=== PATIENT | female | born 1970 | race Caucasian/White ===

== ENCOUNTER → 2016-06-10 | Outpatient (CLI) | payer MEDICARE, MEDICAID ==
--- NOTE | 2016-06-10 10:49 | REP ---
Cervical spine age views: There are no comparisons. Vertebral body heights, interspacing alignment are normal. There is no listhesis on flexion or extension. The facets are normally aligned. Prevertebral soft tissues are normal. The odontoid view is unremarkable. There is no bony foraminal encroachment. Impression: Essentially negative cervical spine. Signed by John Dunham MD 06/10/2016 10:40 A
--- NOTE | 2016-06-10 10:51 | REP ---
Lumbar spine seven views including lateral views with flexion and extension. Vertebral body heights, interspacing alignment are normal. There is no spondylolysis or spondylolisthesis. There is no listhesis on the lateral views with flexion or extension. The pedicles, facets and sacroiliac articulations are unremarkable. An IUD is incidentally noted in the midline of the pelvis. Impression: Essentially negative lumbar spine. Signed by John Dunham MD 06/10/2016 10:42 A
--- NOTE | 2016-06-12 06:01 | REP ---
MRI BRAIN WITHOUT CONTRAST: HISTORY: Headaches. A single punctate focus of increased signal intensity on T2-weighted images is present in the periventricular white matter of the right frontal lobe. There is no intraparenchymal hemorrhage, infarct, mass or midline shift. The ventricular system is normal in appearance. There is no extracerebral collection. The sinuses are clear. IMPRESSION: There is a single punctate focus of increased signal intensity in the periventricular white matter of the right frontal lobe. This is a nonspecific finding. Signed by Melvin Holder MD 06/12/2016 08:08 A
== END ==
LOC: M RAD 09:25
PROVIDERS: ATTEND Neurological Surgery
DX: R51 Headache (principal); M47.892 Other spondylosis, cervical region; M47.896 Other spondylosis, lumbar region

== ENCOUNTER → 2020-09-14 | Outpatient (CLI) | payer MEDICARE ==
--- NOTE | 2020-09-16 01:00 | ECWPNPC ---
PATIENT NAME: GLORIA BUNCH : 1970 GENDER: FEMALE VISIT DATE: 09/14/2020 DISCHARGE DATE: 09/14/20 1359 VISIT LOCKED DATE TIME: PHYSICIAN: BALDO BERRIOS RESOURCE: BALDO BERRIOS REASON FOR APPOINTMENT 1. CHRONIC LOW BACK PAIN HISTORY OF PRESENT ILLNESS DEPRESSION SCREENING: PHQ-9 LITTLE INTEREST OR PLEASURE IN DOING THINGSMORE THAN HALF THE DAYS FEELING DOWN, DEPRESSED, OR HOPELESSMORE THAN HALF THE DAYS TROUBLE FALLING OR STAYING ASLEEP, OR SLEEPING TOO MUCHSEVERAL DAYS FEELING TIRED OR HAVING LITTLE ENERGYSEVERAL DAYS POOR APPETITE OR OVEREATING NEARLY EVERY DAY FEELING BAD ABOUT YOURSELF-OR THAT YOU ARE A FAILURE OR HAVE LET YOURSELF OR YOUR FAMILY DOWN MORE THAN HALF THE DAYS TROUBLE CONCENTRATING ON THINGS, SUCH READING THE NEWSPAPER OR WATCHING TELEVISION NEARLY EVERY DAY MOVING OR SPEAKING SO SLOWLY THAT OTHER PEOPLE COULD HAVE NOTICED. OR THE OPPOSITE- BEING SO FIDGETY OR RESTLESS THAT YOU HAVE BEEN MOVING AROUND A LOT MORE THAN USUALMORE THAN HALF THE DAYS THOUGHTS THAT YOU WOULD BE BETTER OFF , OR OF HURTING YOURSELF IN SOME WAY?NOT AT ALL TOTAL SCORE:16 INTERPRETATIONMODERATELY SEVERE DEPRESSION PHQ-2 (2015 EDITION) LITTLE INTEREST OR PLEASURE IN DOING THINGS?MORE THAN HALF THE DAYS FEELING DOWN, DEPRESSED, OR HOPELESS?MORE THAN HALF THE DAYS TOTAL SCORE4 GENERAL: PLEASANT 50-YEAR-OLD FEMALE REFERRED BY DR. ADAMS, [facility], FOR CHRONIC LOW BACK PAIN. PATIENT REPORTS THAT IN 2005 SHE FELL OFF OF LADDER AND LANDED ON HER BACK . HAS HAD CHRONIC BACK PAIN SINCE THAT POINT THAT HAS PROGRESSED OVER THE YEARS. WORST AREA OF PAIN AND REALLY THE ONLY LOCATION OF PAIN IS HER LEFT THORACIC AND LOW BACK REGION. REPORTS NUMBNESS AND BURNING IN HER LEFT LEG IN ITS ENTIRETY. SHE ALSO REPORTS LEFT NECK AND ARM COMPLAINTS. CURRENTLY ON GABAPENTIN AND TRAMADOL PRESCRIBED BY PRIMARY CARE. DESCRIBES BURNING PAIN IN HER LOW BACK AREA. PAIN IS AGGRAVATED WITH RANGE OF JOINT MOTION OF THE SPINE. RECENT TRIAL OF PT WAS UNSUCCESSFUL DUE TO THE PATIENT NOT BEING ABLE TO TOLERATE LAYING DOWN DUE TO LEFT MID TO LOW BACK PAIN AND BURNING. REVIEWED MRI OF THE LS SPINE AND RECENT NERVE CONDUCTION STUDIES. DISCUSSED TREATMENT PLAN. - - -. FALL RISK SCREENING: SCREENING : NO FALLS REPORTED IN THE LAST YEAR . PAIN SCREENING: PATIENT HAS A COMPLAINT OF ACUTE OR CHRONIC PAIN :YES LOCATION OF PAIN:MID BACK, LOW BACK INTENSITY OF PAIN (SCALE OF 1 TO 10):10 WHAT DOES YOUR PAIN FEEL LIKE:BURNING, CONTINOUS, SHOOTING DURATION:CONTINOUS, CONSTANT, ALL DAY PAIN IS INCREASED BY:ACTIVITIES, OTHERS BENDING OVER PAIN IS DECREASED BY:USE OF PAIN MEDICATIONS GABAPENTIN NURSING NOTE: - - -. PAIN CENTER INTAKE QUESTIONS: DO YOU HAVE A HISTORY OF MRSA? :NO DO YOU TAKE A BLOOD THINNERS? :NO DO YOU HAVE ANY BLEEDING DISORDERS? :NO ANY NEW NUMBNESS OR WEAKNESS IN YOUR LEGS OR ARMS? :YES PINCH NERVE IN THE LEFT IN TOES ANY PACEMAKER,DEFIBRILLATOR, OR DORSAL COLUMN STIMULATOR? :YES DEFIBRILLATOR DO YOU HAVE ANY RASHES OR OPEN SORES? :NO ARE YOU ALLERGIC TO IV DYE? :NO ARE YOU DIABETIC? :NO ANY NEW PROBLEMS WITH YOUR MEDICATIONS? :NO HAVE YOU RECEIVED A VACCINE IN THE PAST 30 DAYS? :NO DO YOU PLAN TO RECEIVE A VACCINE IN THE NEXT 21 DAYS? :NO DO YOU NEED ANY PRESCRIPTION? :NO DO YOU TAKE ANY IMMUNOSUPPRESSIVE MEDICATIONS? :NO IS THERE A CHANCE YOU COULD BE ? :NO ARE YOU BREAST FEEDING? :NO CURRENT MEDICATIONS TAKING BACLOFEN 20 MG TABLET 1 TABLET ADMINISTER WITHOUT REGARDS TO MEALS NEEDED ORALLY TWICE A DAY TAKING NAPROXEN 500 MG TABLET 1 TABLET WITH FOOD OR MILK NEEDED ORALLY EVERY 12 HRS TAKING GABAPENTIN 600 MG TABLET 1 TABLET ORALLY ONCE A DAY TAKING TRAMADOL HCL 50 MG TABLET 1 TABLET NEEDED ORALLY ONCE A DAY TAKING OMEPRAZOLE 10 MG CAPSULE DELAYED RELEASE 1 CAPSULE 30 MINUTES BEFORE MORNING MEAL ORALLY ONCE A DAY TAKING CALCIUM 1 TAB ORAL TAKING IRON SUPPLEMENT 220 (44 FE) MG/5ML ELIXIR DIRECTED ORALLY TAKING LEVOTHYROXINE SODIUM 25 MCG TABLET 1 TABLET IN THE MORNING ON AN EMPTY STOMACH ORALLY ONCE A DAY NOT-TAKING PERCOCET 7.5-325 MG TABLET 1 TABLET NEEDED ORALLY EVERY 6 HRS NOT-TAKING TYLENOL 8 HOUR 650 MG TABLET EXTENDED RELEASE 2 TABLETS NEEDED ORALLY EVERY 8 HRS NOT-TAKING LEVOTHYROXINE SODIUM 25 MCG TABLET 1 TABLET IN THE MORNING ON AN EMPTY STOMACH ORALLY ONCE A DAY, NOTES: NOT SURE OF DOSE NOT-TAKING TYLENOL 325 MG TABLET 1 TABLET NEEDED ORALLY EVERY 4 HRS MEDICATION LIST REVIEWED AND RECONCILED WITH THE PATIENT PAST MEDICAL HISTORY HAND PAIN CARPAL TUNNEL SYNDROME BILATERAL SHOULDERS PAIN CERVICAL RADIOCULPATHY VISUAL AURAS BACK PAIN MODERNA 1ST: 05/20/2020 2ND: 06/17/2020 ALLERGIES SEASONAL IC: SNEEZING - ALLERGY SURGICAL HISTORY BILATERAL FOOT SRUG 2019 BILATERAL KNEE SURG 2018 BILATERAL ELBOWS SURG 2006 CHILD 2X TUBAL LIGATION 1994 APPENDECTOMY FAMILY HISTORY FATHER: 47 YRS MOTHER: ALIVE SIBLINGS: ALIVE SON(S): 3 BROTHER(S) , 1 SISTER(S) . 2DAUGHTER(S) - HEALTHY. ONE DAUGHTERS - FROM [place]- AT THE 25 YEARS OLD. SOCIAL HISTORY GENERAL: TOBACCO USE ARE YOU A:NONSMOKER NEVER SMOKER LATEX QUESTIONNAIRE LATEX ALLERGY : HAVE YOU EVER DEVELOPED ANY TYPE OF REACTION AFTER HANDLING LATEX PRODUCTS SUCH RUBBER GLOVES, CONDOMS, DIAPHRAGMS, BALLOONS, SOCKS, OR UNDERWEAR?NO LATEX ALLERGY : HAVE YOU EVER DEVELOPED ANY TYPE OF REACTION DURING OR AFTER DENTAL APPOINTMENT, VAGINAL/RECTAL EXAMINATION, SURGICAL PROCEDURE, OR ANY OTHER EXPOSURE?NO LATEX RISK : HAVE YOU EVER HAD ANY DIFFICULTY BREATHING OR HIVES AFTER EATING OR HANDLING ANY FRUITS, OR VEGETABLES; SUCH KIWI, BANANAS, STONE FRUITS, OR CHESTNUTSNO LATEX RISK : DO YOU HAVE A PREVIOUS PERSONAL HISTORY OF MORE THAN NINE SURGERIES, SPINA BIFIDA, OR REPEATED CATHERIZATIONS? NO LATEX RISK : ARE YOU FREQUENTLY EXPOSED TO LATEX PRODUCTS IN YOUR OCCUPATION?NO DATE ASKED : 09/14/2020 ALCOHOL USE: NO. RECREATIONAL DRUG USE DRUG USE?NO LANGUAGE LANGUAGES SPOKEN:LITHUANIAN LEARNING BARRIERS / SPECIAL NEEDS CHANGE FROM LAST VISIT?NO BARRIERS TO LEARNING?NO HEARING IMPAIRED?YES VISION IMPAIRED?YES :CORRECTIVE LENSES COGNITIVELY IMPAIRED?YES READINESS TO LEARN?NO LEARNING PREFERENCES?NO LEARNING CAPABILITIES PRESENT?YES EMOTIONAL BARRIERS?NO SPECIAL DEVICES?NO HOSPITALIZATION/MAJOR DIAGNOSTIC PROCEDURE NO HOSPITALIZATION HISTORY. REVIEW OF SYSTEMS CONSTITUTIONAL: ANY RECENT FEVER NO . CHILLS NO . WEIGHT CHANGE OF UNKNOWN REASONS NO . GASTROENTEROLOGY: NEW UNEXPLAINABLE CHANGES IN BOWEL CONTROL NO . CONSTIPATION NO . GENITOURINARY: ANY NEW CHANGE IN BLADDER CONTROL? NO . NEUROLOGY: NEW ONSET DIZZINESS OR NEUROLOGICAL CHANGES NOT MENTIONED NO . NEW NUMBNESS OR PAIN PATTERNS NOT MENTIONED AND PERTINENT TO TODAY'S VISIT NO . CARDIOLOGY: NEW CHEST PRESSURE NO . PATIENT DENIES NO . RESPIRATORY: UNEXPLAINABLE COUGH NO . NEW SHORTNESS OF BREATH NO . VITAL SIGNS WT 264 LBS, HT 6'0, BMI 35.80 INDEX, BP 156/74 MM HG, RR 18 /MIN, TEMP 97.7 F, OXYGEN SAT % 97%, SAFE IN ENV? (Y/N) YEST.BRENDA HOLCOMB. EXAMINATION GENERAL EXAMINATION: GENERALNO ACUTE DISTRESS, WELL NOURISHED AND HYDRATED. PSYCHAPPROPRIATE MOOD AND AFFECT . FACE:UNREMARKABLE. NECK:NO LYMPHADENOPATHY, SUPPLE. LUNGS:CLEAR TO AUSCULTATION BILATERALLY, NO WHEEZES, RHONCHI, RALES. HEART:NO MURMURS, REGULAR RATE AND RHYTHM. MUSCULOSKELETAL: TRIGGER POINTS: NOTED OVER LEFT THORACIC AND LEFT LUMBAR. PAIN IS AGGRAVATED IN THIS REGION WITH RANGE OF JOINT MOTION OF THE SPINE.. LUMBAR: TRIGGER POINTS: NOTED OVER LEFT UPPER LUMBAR PARASPINAL REGION. PAIN IS AGGRAVATED IN THIS AREA WITH RANGE OF JOINT MOTION OF THE SPINE.. NEUROLOGIC EXAM:PARESTHESIAS TO LIGHT TOUCH NOTED OVER LEFT LEG. MILD WEAKNESS NOTED OVER LEFT LEG.. DIAGNOSTIC TESTS REVIEWED MRI L/S SPINE-2019. NCS UPPER/LOWER EXTREMITIES. ASSESSMENTS MYALGIA, OTHER SITE - M79.18 (PRIMARY) TREATMENT MYALGIA, OTHER SITE MEDICATION: PAIN VALIUM TAB 5MG ORALLY (DIAZEPAM) (ORDERED FOR 09/28/2020) MEDICATION: PAIN OXYCODONE HCL TAB 5MG ORALLY (ORDERED FOR 09/28/2020) NOTES: TRIGGER POINT INJECTIONS LEFT THORACIC,LEFT LOW BACK PRINTED AND REVIEWED PRE PROCEDURE INFORMATION, PATIENT VERBALIZED UNDERSTANDING CHENG HOLCOMB. PROCEDURE CODES [id number] ESTABILISHED PATIENT [facility] CHARGE DISPOSITION & COMMUNICATION FOLLOW UP POST (REASON: TRIGGER POINT INJECTIONS LEFT THORACIC,LEFT LOW BACK) ELECTRONICALLY SIGNED BY DC VALENTE ON 09/15/2020 AT 01:01 PM EDT DISCLAIMER : THIS IS A VISIT SUMMARY EXTRACTED FROM THE [email or web address] CHART. IT IS NOT A COPY OF THE [email or web address] PROGRESS NOTE. MTDD
== END ==
LOC: M PAIN 13:00
PROVIDERS: ATTEND Nurse Practitioner Family
DX: M79.18 Myalgia, other site (principal); M54.12 Radiculopathy, cervical region; M25.511 Pain in right shoulder; M25.512 Pain in left shoulder; Z79.891 Long term (current) use of opiate analgesic; Z79.899 Other long term (current) drug therapy; J30.2 Other seasonal allergic rhinitis

== ENCOUNTER → 2020-10-27 | Outpatient (CLI) | payer MEDICARE | LOC: M LABSMTC 10:03 | PROVIDERS: ATTEND Anesthesiology | DX: Z01.818 Encounter for other preprocedural examination (principal); Z20.822 Contact with and (suspected) exposure to COVID-19 ==

== ENCOUNTER → 2020-11-01 | Outpatient (CLI) | payer MEDICARE ==
[~2020-11-01] MED LIST: BUPIVACAINE HCL 0.25% 10ML VIAL As Ordered ONE; BUPIVACAINE HCL 0.25% 30ML VIAL As Ordered ONE; TRIAMCINOLONE ACETONIDE SUSP 40 MG/ML VIAL (J3301) As Ordered ONE; diazePAM 5MG TABLET As Ordered ONE; oxyCODONE 5MG TAB As Ordered ONE
== END ==
LOC: M PAIN 08:30
PROVIDERS: ATTEND Anesthesiology
DX: M79.18 Myalgia, other site (principal); M54.12 Radiculopathy, cervical region; J30.2 Other seasonal allergic rhinitis; Z79.891 Long term (current) use of opiate analgesic; Z79.899 Other long term (current) drug therapy
CPT/HCPCS: 20552; J3301

== ENCOUNTER → 2021-01-06 | Outpatient (CLI) | payer MEDICARE | LOC: M PAIN 09:30 | PROVIDERS: ATTEND Anesthesiology | DX: G89.29 Other chronic pain (principal); M79.18 Myalgia, other site; Z79.1 Long term (current) use of non-steroidal anti-inflammatories (NSAID); Z79.899 Other long term (current) drug therapy ==

== ENCOUNTER → 2021-02-02 | Outpatient (CLI) | payer MEDICARE | LOC: M PAIN 11:30 | PROVIDERS: ATTEND Anesthesiology | DX: M54.12 Radiculopathy, cervical region (principal); J30.9 Allergic rhinitis, unspecified; Z79.899 Other long term (current) drug therapy ==

== ENCOUNTER → 2021-05-04 | Outpatient (CLI) | payer MEDICARE | LOC: M PAIN 11:15 | PROVIDERS: ATTEND Anesthesiology | DX: M54.12 Radiculopathy, cervical region (principal); G89.29 Other chronic pain; M54.6 Pain in thoracic spine; G62.9 Polyneuropathy, unspecified; E66.01 Morbid (severe) obesity due to excess calories; Z68.43 Body mass index [BMI] 50.0-59.9, adult; Z79.899 Other long term (current) drug therapy ==

== ENCOUNTER → 2021-08-17 | Outpatient (CLI) | payer MEDICARE | LOC: M PAIN 10:00 | PROVIDERS: ATTEND Anesthesiology | DX: M54.12 Radiculopathy, cervical region (principal); G62.9 Polyneuropathy, unspecified; M54.6 Pain in thoracic spine; G89.29 Other chronic pain; E66.01 Morbid (severe) obesity due to excess calories; Z68.43 Body mass index [BMI] 50.0-59.9, adult; Z79.899 Other long term (current) drug therapy ==

== ENCOUNTER → 2021-12-22 | Outpatient (CLI) | payer MEDICARE | LOC: M PAIN 11:15 | PROVIDERS: ATTEND Nurse Practitioner Family | DX: M79.10 Myalgia, unspecified site (principal); M25.511 Pain in right shoulder; M25.512 Pain in left shoulder; M54.16 Radiculopathy, lumbar region; Z79.890 Hormone replacement therapy; Z79.899 Other long term (current) drug therapy; J30.2 Other seasonal allergic rhinitis ==

== ENCOUNTER → 2022-02-27 | Outpatient (CLI) | payer MEDICARE ==
[~2022-02-27] MED LIST changes: -TRIAMCINOLONE ACETONIDE SUSP 40 MG/ML VIAL (J3301) As Ordered ONE; +TRIAMCINOLONE ACETONIDE SUSP 40MG/ML 1ML VIAL As Ordered ONE
== END ==
LOC: M PAIN 11:00
PROVIDERS: ATTEND Anesthesiology
DX: M79.18 Myalgia, other site (principal); M25.511 Pain in right shoulder; M25.512 Pain in left shoulder; M54.12 Radiculopathy, cervical region; J30.2 Other seasonal allergic rhinitis; Z79.890 Hormone replacement therapy; Z79.899 Other long term (current) drug therapy

== ENCOUNTER → 2022-03-16 | Outpatient (CLI) | payer MEDICARE | LOC: M PAIN 11:30 | PROVIDERS: ATTEND Nurse Practitioner Family | DX: M79.18 Myalgia, other site (principal); M54.12 Radiculopathy, cervical region; M79.643 Pain in unspecified hand; M25.511 Pain in right shoulder; M25.512 Pain in left shoulder; Z79.890 Hormone replacement therapy; Z79.899 Other long term (current) drug therapy; J30.2 Other seasonal allergic rhinitis ==

== ENCOUNTER → 2022-06-15 | Outpatient (CLI) | payer MEDICARE | LOC: M PAIN 11:30 | PROVIDERS: ATTEND Anesthesiology | DX: M79.18 Myalgia, other site (principal); G89.29 Other chronic pain; E66.01 Morbid (severe) obesity due to excess calories; Z68.43 Body mass index [BMI] 50.0-59.9, adult; Z79.899 Other long term (current) drug therapy ==

== ENCOUNTER → 2022-08-16 | Outpatient (CLI) | payer MEDICARE | LOC: M TMPAIN 11:15 → M PAIN 11:15 | PROVIDERS: ATTEND Anesthesiology | DX: M79.10 Myalgia, unspecified site (principal); M54.50 Low back pain, unspecified; M79.18 Myalgia, other site; Z79.890 Hormone replacement therapy; Z79.899 Other long term (current) drug therapy; J30.2 Other seasonal allergic rhinitis ==

== ENCOUNTER → 2023-01-23 | Outpatient (CLI) | payer MEDICARE ==
[~2023-01-23] MED LIST changes: -BUPIVACAINE HCL 0.25% 10ML VIAL As Ordered ONE; -BUPIVACAINE HCL 0.25% 30ML VIAL As Ordered ONE
== END ==
LOC: M PAIN 10:15
PROVIDERS: ATTEND Anesthesiology
DX: M79.18 Myalgia, other site (principal); M54.12 Radiculopathy, cervical region; M25.511 Pain in right shoulder; M25.512 Pain in left shoulder; Z79.890 Hormone replacement therapy; Z79.899 Other long term (current) drug therapy; J30.2 Other seasonal allergic rhinitis
CPT/HCPCS: 20552; J0665; J3301

== ENCOUNTER → 2023-04-25 | Outpatient (CLI) | payer MEDICARE | LOC: M PAIN 11:45 | PROVIDERS: ATTEND Anesthesiology | DX: M79.10 Myalgia, unspecified site (principal); M54.6 Pain in thoracic spine; Z79.890 Hormone replacement therapy; Z79.891 Long term (current) use of opiate analgesic; Z79.899 Other long term (current) drug therapy ==

== ENCOUNTER → 2023-05-25 | Outpatient (CLI) | payer MEDICARE | LOC: M PAIN 08:15 | PROVIDERS: ATTEND Anesthesiology | DX: M79.18 Myalgia, other site (principal); Z79.890 Hormone replacement therapy; Z79.899 Other long term (current) drug therapy | CPT/HCPCS: 20552; J0665; J3301 ==

== ENCOUNTER → 2023-09-28 | Outpatient (CLI) | payer MEDICARE, MEDICAID | LOC: M PAIN 09:30 | PROVIDERS: ATTEND Nurse Practitioner Family | DX: M79.10 Myalgia, unspecified site (principal); G89.29 Other chronic pain; M54.12 Radiculopathy, cervical region; M25.511 Pain in right shoulder; M25.512 Pain in left shoulder; Z79.890 Hormone replacement therapy; Z79.899 Other long term (current) drug therapy ==

== ENCOUNTER → 2023-11-12 | Outpatient (CLI) | payer MEDICARE | LOC: M PAIN 11:15 | PROVIDERS: ATTEND Nurse Practitioner Family | DX: M79.18 Myalgia, other site (principal); G89.29 Other chronic pain; M54.12 Radiculopathy, cervical region; M25.511 Pain in right shoulder; M25.512 Pain in left shoulder; Z79.890 Hormone replacement therapy; Z79.899 Other long term (current) drug therapy ==

== ENCOUNTER → 2024-01-01 | Outpatient (CLI) | payer MEDICARE | LOC: M PAIN 16:00 | PROVIDERS: ATTEND Anesthesiology | DX: M79.18 Myalgia, other site (principal); G89.29 Other chronic pain; E66.01 Morbid (severe) obesity due to excess calories; Z68.43 Body mass index [BMI] 50.0-59.9, adult; Z79.899 Other long term (current) drug therapy; Z91.048 Other nonmedicinal substance allergy status | CPT/HCPCS: 20552; J0665; J3301 ==

== ENCOUNTER → 2024-03-25 | Outpatient (CLI) | payer MEDICARE | LOC: M PAIN 13:00 | PROVIDERS: ATTEND Nurse Practitioner Family | DX: M79.18 Myalgia, other site (principal); G89.29 Other chronic pain; Z79.890 Hormone replacement therapy; Z79.899 Other long term (current) drug therapy ==